=== PATIENT | male | born 1965 | race Caucasian/White ===

== ENCOUNTER 2017-09-03 19:05 | Inpatient (IN) | payer SELFPAY ==
[~2017-09-03] VITALS: Ht 185.4 cm; Wt 96.6 kg
[2017-09-03 20:08] LABS: BASOPHILS % 0.3 % (0.0-2.0); EOSINOPHILS % 1.6 % (0.0-5.0); HEMATOCRIT. 45.2 % (42.0-52.0); HEMOGLOBIN. 15.6 g/dL (14.0-18.0); LYMPHOCYTES % 21.1 % (20.0-50.0); MEAN CORPUSCULAR HEMOGLOBIN 32.3 pg (28.0-32.0); MEAN CORPUSCULAR VOLUME 93.5 fL (80.0-94.0); MEAN PLATELET VOLUME 7.7 fl (7.4-10.4); PLATELET 200 x1000/uL (130-400); RED BLOOD CELL COUNT 4.83 mill/uL (4.7-6.1); RED CELL DISTRIBUTION WIDTH 12.9 % (11.6-14.6)
[2017-09-03 20:13] LABS: CHLORIDE 105 mEq/L (98-107)
[2017-09-03 20:15] LABS: PROTHROMBIN TIME 10.4 sec (9.4-11.6)
[2017-09-03 21:37] LABS: CLARITY URINE CLEAR (CLEAR); COLOR URINE YELLOW (YELLOW); KETONES URINE NEGATIVE (NEGATIVE); LEUKOCYTE ESTERASE URINE NEGATIVE (NEGATIVE); NITRITE URINE NEGATIVE (NEGATIVE); OCCULT BLOOD URINE NEGATIVE (NEGATIVE); PH URINE 5.5 (4.5-8.0); PROTEIN URINE NEGATIVE (NEGATIVE); SPECIFIC GRAVITY URINE 1.018 (1.005-1.030)
[2017-09-03] MEDS ORDERED: ACETAMINOPHEN WITH CODEINE 300/30MG TABLET PO ONE (21:45)
[2017-09-03 21:50] LABS: *AMPHETAMINES SCREEN URINE NEGATIVE (NEGATIVE); *BARBITURATES SCREEN URINE NEGATIVE (NEGATIVE)
[2017-09-03 21:51] LABS: *BENZODIAZEPINES SCREEN URINE NEGATIVE (NEGATIVE); *COCAINE SCREEN URINE NEGATIVE (NEGATIVE); CANNABINOID URINE SCREEN NEGATIVE (NEGATIVE); METHADONE URINE SCREEN NEGATIVE (NEGATIVE); OPIATES URINE SCREEN NEGATIVE (NEGATIVE); PHENCYCLIDINE URINE SCREEN NEGATIVE (NEGATIVE)
[2017-09-04] VITALS (8 sets, daily range): BP systolic 109–118; BP diastolic 66–87
[2017-09-04] MEDS ORDERED: MAGNESIUM/ALUMINUM HYDROXIDE/SIMETHICONE 30ML UDC PO PRN
[2017-09-04] MEDS ORDERED: CLONIDINE 0.1MG TABLET PO PRN
[2017-09-04] MEDS ORDERED: ACETAMINOPHEN 325MG TABLET PO PRN
[2017-09-04] MEDS ORDERED: ONDANSETRON HCL 4MG/2ML VIAL IV PRN
[2017-09-04] MEDS ORDERED: DIPHENHYDRAMINE 50MG/ML VIAL IV PRN
[2017-09-04] MEDS ORDERED: GADOBENATE DIMEGLUMINE 529 MG/ML 10ML IV ONE ×2 (00:47→01:28)
[2017-09-04] MEDS: SODIUM CHLORIDE 0.9% INJ 3ML FLUSH IVF SCH ×2 (05:20→14:47)
[2017-09-04] MEDS ORDERED: ASPIRIN 325MG EC TABLET PO SCH (09:00)
[2017-09-04] MEDS ORDERED: ATORVASTATIN CALCIUM 20MG TABLET PO SCH ×2 (21:00)
== END 2017-09-04 19:42 | disposition home or self-care (01) | DRG 45 ==
LOC: ER 19:05 → 5WST 23:36 → ENRESERV 23:45
PROVIDERS: ADMIT Internal Medicine; ATTEND Internal Medicine
DX: I63.9 Cerebral infarction, unspecified (principal); G83.21 Monoplegia of upper limb affecting right dominant side; E78.00 Pure hypercholesterolemia, unspecified; Z79.82 Long term (current) use of aspirin
CPT/HCPCS: 36415; 70450; 70547; 70551; 80053; 80061; 80305; 81003; 85025; 85610; 93005; A9577